=== PATIENT | male | born 2005 | race African-American/Black ===

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

== ENCOUNTER 2023-10-30 22:16 | Emergency (ER) | payer OTHER ==
[2023-10-30 23:08] LABS: Influenza A by NAA Not Detected (NotDetected); Influenza B by NAA Not Detected (NotDetected); SARS-CoV-2 NAA Rapid Test Not Detected (NotDetected)
== END 2023-10-30 23:23 | disposition home or self-care (01) ==
LOC: NAV ERS 22:16
DX: B34.9 Viral infection, unspecified (principal); E66.9 Obesity, unspecified; J45.909 Unspecified asthma, uncomplicated; Z79.899 Other long term (current) drug therapy
CPT/HCPCS: 99283